=== PATIENT | male | born 1970 | race Caucasian/White ===

== ENCOUNTER 2018-07-30 03:21 | Inpatient (IN) | payer MEDICARE ==
[~2018-07-30] VITALS: Ht 188 cm; Wt 77.1 kg
[2018-07-30] MEDS ORDERED: SODIUM CHLORIDE 0.9% 1,000 ML IV ONE (03:42)
[2018-07-30] MEDS ORDERED: ACTIVATED CHARCOAL 50 G/240 ML TUBE PO ONE (03:45)
[2018-07-30 04:25] LABS: BASOPHILS % 1.2 % (0.0-2.0); EOSINOPHILS % 2.7 % (0.0-5.0); HEMATOCRIT. 40.6 % (42.0-52.0); HEMOGLOBIN. 13.4 g/dL (14.0-18.0); LYMPHOCYTES % 27.1 % (20.0-50.0); MEAN CORPUSCULAR HEMOGLOBIN 30.4 pg (28.0-32.0); MEAN CORPUSCULAR VOLUME 91.9 fL (80.0-94.0); MEAN PLATELET VOLUME 9.3 fl (7.4-10.4); MONOCYTES % 12.6 % (2.0-8.0); NEUTROPHILS % 56.4 % (40.0-76.0); PLATELET 275 x1000/uL (130-400); RED BLOOD CELL COUNT 4.42 mill/uL (4.7-6.1); RED CELL DISTRIBUTION WIDTH 13.5 % (11.6-14.6)
[2018-07-30 04:30] LABS: CHLORIDE 110 mEq/L (98-107)
[2018-07-30 04:33] LABS: PARTIAL THROMBOPLASTIN TIME 27.3 sec (23.4-31.0); PROTHROMBIN TIME 10.5 sec (9.1-11.1)
[2018-07-30 04:35] LABS: ETHANOL BLOOD < 10 mg/dL
[2018-07-30] MEDS ORDERED: ACETYLCYSTEINE 200MG/ML 20% VIAL 30ML (INJ) IV ONE ×3 (05:00→07:00)
[2018-07-30] MEDS ORDERED: ACETYLCYSTEINE IV SCH ×2 (05:30→07:00)
[2018-07-30] MEDS ORDERED: WATER IV SCH ×2 (05:30→07:00)
[2018-07-30] MEDS ORDERED: DEXT 5% IV SCH ×2 (05:30→07:00)
[2018-07-30 06:09] LABS: CLARITY URINE CLEAR (CLEAR); COLOR URINE YELLOW (YELLOW); KETONES URINE NEGATIVE (NEGATIVE); LEUKOCYTE ESTERASE URINE NEGATIVE (NEGATIVE); NITRITE URINE NEGATIVE (NEGATIVE); OCCULT BLOOD URINE NEGATIVE (NEGATIVE); PROTEIN URINE NEGATIVE (NEGATIVE); SPECIFIC GRAVITY URINE 1.023 (1.005-1.030); UROBILINOGEN URINE 0.2 E.U./dL (0.2-1.0)
[2018-07-30 06:18] LABS: *AMPHETAMINES SCREEN URINE NEGATIVE (NEGATIVE); *BARBITURATES SCREEN URINE NEGATIVE (NEGATIVE); CANNABINOID URINE SCREEN NEGATIVE (NEGATIVE); METHADONE URINE SCREEN NEGATIVE (NEGATIVE); OPIATES URINE SCREEN NEGATIVE (NEGATIVE); PHENCYCLIDINE URINE SCREEN NEGATIVE (NEGATIVE)
[2018-07-30 06:19] LABS: *BENZODIAZEPINES SCREEN URINE NEGATIVE (NEGATIVE); *COCAINE SCREEN URINE NEGATIVE (NEGATIVE)
[2018-07-30] MEDS ORDERED: ONDANSETRON HCL 4MG/2ML INJ IV PRN (08:30)
[2018-07-30] MEDS ORDERED: IPRATROPIUM/ALBUTEROL 0.5-3(2.5)MG/3ML NEB INH PRN (08:30)
[2018-07-30 08:49] LABS: INR 1.2; PARTIAL THROMBOPLASTIN TIME 29.8 sec (23.4-31.0); PROTHROMBIN TIME 11.8 sec (9.1-11.1)
[2018-07-30 08:50] LABS: CHLORIDE 110 mEq/L (98-107)
[2018-07-30 10:36] LABS: BASOPHILS % 0.7 % (0.0-2.0); EOSINOPHILS % 0.1 % (0.0-5.0); HEMOGLOBIN. 13.1 g/dL (14.0-18.0); LYMPHOCYTES % 9.1 % (20.0-50.0); MEAN CORPUSCULAR HEMOGLOBIN 30.5 pg (28.0-32.0); MEAN CORPUSCULAR VOLUME 92.8 fL (80.0-94.0); MEAN PLATELET VOLUME 9.3 fl (7.4-10.4); MONOCYTES % 9.4 % (2.0-8.0); NEUTROPHILS % 80.7 % (40.0-76.0); PLATELET 245 x1000/uL (130-400); RED BLOOD CELL COUNT 4.31 mill/uL (4.7-6.1); RED CELL DISTRIBUTION WIDTH 13.7 % (11.6-14.6)
[2018-07-30 10:56] VITALS: BP 100/63
[2018-07-30] MEDS: SODIUM CHLORIDE 0.9% 1,000 ML IV SCH (11:54)
[2018-07-30] MEDS ORDERED: WATER IV ONE (12:00)
[2018-07-30] MEDS ORDERED: DEXTROSE 5% IV ONE (12:00)
[2018-07-30] MEDS ORDERED: ACETYLCYSTEINE IV ONE (12:00)
[2018-07-30] MEDS ORDERED: BUSP-29 PO (12:27)
[2018-07-30] MEDS ORDERED: BUPR300T52 MT (12:27)
[2018-07-30] MEDS ORDERED: LORA10CA MT (12:29)
[2018-07-30] MEDS ORDERED: OMEP20TA15 MT (12:29)
[2018-07-30 16:00] VITALS: BP 126/84
[2018-07-30] MEDS: SODIUM CHLORIDE 0.9% INJ 3ML FLUSH IVF SCH ×2 (17:56→22:50)
[2018-07-30 20:00] VITALS: BP 105/69
[2018-07-31] VITALS: BP 114/78
[2018-07-31] MEDS: SODIUM CHLORIDE 0.9% 1,000 ML IV SCH ×2 (03:50→13:34)
[2018-07-31 04:00] VITALS: BP 101/74
[2018-07-31] MEDS: SODIUM CHLORIDE 0.9% INJ 3ML FLUSH IVF SCH ×3 (05:44→21:15)
[2018-07-31 06:57] LABS: BASOPHILS % 1.1 % (0.0-2.0); EOSINOPHILS % 1.5 % (0.0-5.0); HEMOGLOBIN. 12.8 g/dL (14.0-18.0); LYMPHOCYTES % 17.9 % (20.0-50.0); MEAN CORPUSCULAR HEMOGLOBIN 30.6 pg (28.0-32.0); MEAN CORPUSCULAR VOLUME 90.8 fL (80.0-94.0); MEAN PLATELET VOLUME 9.5 fl (7.4-10.4); NEUTROPHILS % 69.5 % (40.0-76.0); PLATELET 263 x1000/uL (130-400); RED BLOOD CELL COUNT 4.19 mill/uL (4.7-6.1); RED CELL DISTRIBUTION WIDTH 13.5 % (11.6-14.6)
[2018-07-31 07:35] LABS: CHLORIDE 112 mEq/L (98-107)
[2018-07-31 08:00] VITALS: BP 125/79
[2018-07-31 08:07] LABS: LDL CHOLESTEROL 86 mg/dL (5-100)
[2018-07-31 08:10] LABS: HDL CHOLESTEROL 39 mg/dL (40-59)
[2018-07-31 12:00] VITALS: BP 114/67
[2018-07-31] MEDS ORDERED: MEDICATION NOT ON FORMULARY EA (Loratadine (Claritin) 1 CAP) MT SCH (13:15)
[2018-07-31] MEDS ORDERED: MEDICATION NOT ON FORMULARY EA (Bupropion Hcl (Wellbutrin Xl) 1 TAB) MT SCH (13:15)
[2018-07-31] MEDS: PANTOPRAZOLE 40MG DR TABLET PO SCH (13:34)
[2018-07-31] MEDS: LORATADINE 10MG TABLET PO SCH (13:48)
[2018-07-31 16:00] VITALS: BP 131/84
[2018-07-31] MEDS ORDERED: BUPROPION HCL 150MG TABLET XL 24HR PO SCH (16:00)
[2018-07-31] MEDS: POTASSIUM CHLORIDE 20MEQ TABLET SR PO PRN (17:46)
[2018-07-31 20:00] VITALS: BP 127/80
[2018-07-31] MEDS: BUPROPION HCL 150MG TABLET XL 24HR PO SCH (20:42)
[2018-08-01] VITALS: BP 125/80
[2018-08-01] MEDS: SODIUM CHLORIDE 0.9% 1,000 ML IV SCH ×2 (01:27→13:19)
[2018-08-01 04:00] VITALS: BP 102/69
[2018-08-01] MEDS: SODIUM CHLORIDE 0.9% INJ 3ML FLUSH IVF SCH ×2 (05:35→13:18)
[2018-08-01 08:20] VITALS: BP 114/77
[2018-08-01] MEDS: POTASSIUM CHLORIDE 20MEQ TABLET SR PO PRN (09:36)
[2018-08-01] MEDS: LORATADINE 10MG TABLET PO SCH (09:36)
[2018-08-01] MEDS: PANTOPRAZOLE 40MG DR TABLET PO SCH (09:36)
[2018-08-01] MEDS ORDERED: ASPIRIN 325MG TABLET ONE (11:27)
[2018-08-01 12:12] VITALS: BP 119/75
[2018-08-01 16:00] VITALS: BP 111/74
[2018-08-01 17:39] LABS: BASOPHILS % 1.3 % (0.0-2.0); EOSINOPHILS % 4.9 % (0.0-5.0); LYMPHOCYTES % 31.7 % (20.0-50.0); MEAN CORPUSCULAR HEMOGLOBIN 30.4 pg (28.0-32.0); MEAN CORPUSCULAR VOLUME 91.5 fL (80.0-94.0); MEAN PLATELET VOLUME 9.7 fl (7.4-10.4); MONOCYTES % 10.3 % (2.0-8.0); NEUTROPHILS % 51.8 % (40.0-76.0); PLATELET 234 x1000/uL (130-400); RED BLOOD CELL COUNT 3.94 mill/uL (4.7-6.1); RED CELL DISTRIBUTION WIDTH 13.5 % (11.6-14.6)
[2018-08-01 17:45] LABS: CHLORIDE 111 mEq/L (98-107)
[2018-08-01 20:00] VITALS: BP 117/75
[2018-08-01] MEDS: BUPROPION HCL 150MG TABLET XL 24HR PO SCH (20:38)
[2018-08-02] VITALS: BP 119/66
[2018-08-02 04:00] VITALS: BP 123/57
[2018-08-02 08:00] VITALS: BP 113/78
[2018-08-02] MEDS ORDERED: FAMOTIDINE 20MG TABLET PO SCH (09:00)
[2018-08-02] MEDS: LORATADINE 10MG TABLET PO SCH (09:46)
[2018-08-02 12:14] VITALS: BP 117/89
[2018-08-02 13:27] VITALS: BP 117/89
== END 2018-08-02 15:10 | disposition home or self-care (01) | DRG 918 ==
LOC: ER 03:21 → 5WST 05:25 → EDBEDREQTM 05:33 → EDBEDREQ 05:33 → EDBEDREQSVC 07:46 → ENRESERV 09:56 → 5WST 11:05
PROVIDERS: ADMIT Family Medicine; ATTEND Emergency Medicine
DX: T39.1X2A Poisoning by 4-Aminophenol derivatives, intentional self-harm, initial encounter (principal); E11.9 Type 2 diabetes mellitus without complications; F32.9 Major depressive disorder, single episode, unspecified; F99 Mental disorder, not otherwise specified; Z59.0 Homelessness; Z91.5 Personal history of self-harm; Y92.89 Other specified places as the place of occurrence of the external cause
CPT/HCPCS: 36415; 71045; 80061; 80076; 80305; 80307; 80329; 82248; 82553; 84450; 84460; 93005; 93970; 96361; 96365; 96366; 99291; J0132; J7030; J7060; J7070